=== PATIENT | female | born 1990 | race Hispanic/Latino ===

== ENCOUNTER 2023-01-06 11:24 | Emergency (ER) | payer OTHER, MEDICARE ==
[~2023-01-06] VITALS: Ht 152.4 cm; Wt 73.5 kg
[~2023-01-06 11:24] MED LIST: CLON0.5T23 PO; GUAN2TAB PO; HYDR-3422 PO; RISP4TAB63 PO; TOPI-255 PO
[2023-01-06 11:31] VITALS: BP 146/83; PULSE 102; RESP 16
[2023-01-06] MEDS ORDERED: ONDANSETRON ODT 4MG TAB SL ONE (12:00)
[2023-01-06] MEDS ORDERED: HYDROCODONE/ACETAMINOPHEN 5/325 MG TAB PO ONE (12:00)
[2023-01-06] MEDS ORDERED: PREDNISONE 20 MG TABLET PO ONE (12:00)
[2023-01-06] MEDS ORDERED: IBUPROFEN 600 MG TABLET PO ONE (12:00)
[2023-01-06] MEDS ORDERED: DIAZEPAM 5 MG TABLET PO ONE (12:00)
[2023-01-06] MEDS ORDERED: METH-811 PO (13:48)
== END 2023-01-06 14:14 | disposition home or self-care (01) ==
LOC: EDH 11:24
DX: S39.012A Strain of muscle, fascia and tendon of lower back, initial encounter (principal); S16.1XXA Strain of muscle, fascia and tendon at neck level, initial encounter; Z79.899 Other long term (current) drug therapy; V89.2XXA Person injured in unspecified motor-vehicle accident, traffic, initial encounter; Y93.89 Activity, other specified; Y92.89 Other specified places as the place of occurrence of the external cause; Y99.8 Other external cause status
CPT/HCPCS: 72040; 72100

== ENCOUNTER 2023-05-12 10:33 | Emergency (ER) | payer OTHER, MEDICARE ==
[~2023-05-12] VITALS: Ht 152.4 cm; Wt 67.1 kg
[~2023-05-12 10:33] MED LIST changes: +METH-811 PO; -TOPI-255 PO; +TOPI-97 PO
[2023-05-12 10:38] VITALS: BP 101/66; PULSE 139; RESP 18
[2023-05-12] MEDS ORDERED: IBUPROFEN 100 MG/5 ML SUSP UDCUP PO ONE (11:00)
[2023-05-12] MEDS ORDERED: IBUP-2070 PO (11:56)
== END 2023-05-12 12:08 | disposition home or self-care (01) ==
LOC: EDH 10:33
DX: S82.831A Other fracture of upper and lower end of right fibula, initial encounter for closed fracture (principal); M25.571 Pain in right ankle and joints of right foot; M79.89 Other specified soft tissue disorders; M79.671 Pain in right foot; W01.0XXA Fall on same level from slipping, tripping and stumbling without subsequent striking against object, initial encounter; Y93.89 Activity, other specified; Y92.89 Other specified places as the place of occurrence of the external cause; Y99.8 Other external cause status
CPT/HCPCS: 73590; 73600; 73630